=== PATIENT | female | born 1955 | race African-American/Black ===

== ENCOUNTER 2019-05-17 09:52 | Day surgery (SDC) | payer BC ==
[2019-05-12 16:27] VITALS: BMI 27.0
[2019-05-17] MEDS ORDERED: PROPOFOL 20 ML ONE (13:09)
[2019-05-17] MEDS ORDERED: MIDAZOLAM HCL 2 MG/2 ML SINGLE DOSE VIAL ONE (13:09)
[2019-05-17 15:05] VITALS: BP 100/66; PULSE 74; TEMP 97.6
--- NOTE | 2019-05-19 16:18 | PATH ---
Surgical Pathology Report Patient Name: SNEHAJune Med. Rec. #: [id number] /Age/Gender: 1955 (Age: 63) / F Account: [id number] Location: [facility] Taken: 05/17/2019 Received: 05/17/2019 Reported: 05/19/2019 Physicians: José Antonio Laura M.D. Specimen(s) Received RIGHT THUMB MASS & FOREIGN BODY Clinical History Right thumb mass Final Diagnosis RIGHT THUMB MASS AND FOREIGN BODY, EXCISION: PORTION OF SKIN SHOWING MARKED EPIDERMAL HYPERPLASIA WITH THICKENED GRANULAR LAYER, HYPERKERATOSIS, AND PARAKERATOSIS. SEE COMMENT. Comment: Histologic features are suggestive of a verruca (wart). Foreign body material not identified. Clinical correlation is recommended. Electronically Signed Mango Torres M.D. Gross Description Received in formalin labeled "right thumb mass and foreign body," is a 0.7 x 0.3 x 0.2 cm rodriges, irregular, unoriented portion of skin. The epidermal surface is grossly unremarkable. Separately received within the same container is a 0.3 x 0.1 x 0.1 cm yellow, hard foreign body. The skin is trisected and entirely submitted in one cassette. 05/18/2019 saudi05/18/2019
--- NOTE | 2019-05-23 18:03 | OP ---
DATE OF OPERATION: 05/17/2019 PREOPERATIVE DIAGNOSIS: Right thumb mass/foreign body. POSTOPERATIVE DIAGNOSIS: Right thumb mass/foreign body. PROCEDURE: Right thumb mass/foreign body excision. SURGEON: José Antonio Leslie MD ANESTHESIA: Local with sedation. COMPLICATIONS: None. ESTIMATED BLOOD LOSS: Minimal. INDICATIONS FOR PROCEDURE: The patient is a 63-year-old female with the above finding indicated for operative treatment. Risks, benefits, alternatives were discussed with the patient at length. Proper informed consent was obtained. DESCRIPTION OF PROCEDURE: After proper identification of patient and correct operative site, patient brought to the operative room and placed supine on the operative table. Anesthetic was performed. Right upper extremity was prepped and draped in the usual sterile fashion. An incision was made over the mass at the tip of the thumb. The mass was found to be granulomatous tissue around a piece of glass. This was removed. Wound was irrigated and repaired with 5-0 fast-absorbing plain gut as well. Dermabond and Steri-Strips were applied. Patient was brought to recovery in stable condition. She tolerated the procedure well. JOSÉ ANTONIO LESLIE M.D. [id number]
== END 2019-05-17 15:10 | disposition home or self-care (01) ==
LOC: FASU 09:52
PROVIDERS: ATTEND Orthopaedic Surgery Hand Surgery
PROC: 0HBFXZZ Excision of Right Hand Skin, External Approach (ICD-10-PCS; principal; 2019-05-17 13:53)
DX: Z18.81 Retained glass fragments (principal); L85.9 Epidermal thickening, unspecified
CPT/HCPCS: 82962; 88305-TC